=== PATIENT | female | born 1945 | race Two or more races ===

== ENCOUNTER 2019-01-17 07:18 | Inpatient (IN) ==
--- NOTE | 2019-01-10 15:41 | PAT Medication Instructions ---
Medication Instructions Date of Service January 10, 2019 Home Medications duloxetine [Cymbalta] 120 mg PO QAM fenofibrate nanocrystallized 145 mg PO PM fentanyl 1 patch TRANSDERMAL Q72H hydroxychloroquine [Plaquenil] 200 mg PO BID levothyroxine 50 mcg PO QAM lisinopril 20 mg PO QAM meloxicam 7.5 mg PO QAM oxycodone-acetaminophen 1 tab PO Q6H PRN simvastatin 40 mg PO PM temazepam 15 mg PO HS PRN Continue as directed fentanyl 1 patch TRANSDERMAL Q72H (avoid placement over surgery site) ASK your surgeon for instructions meloxicam 7.5 mg PO QAM ASK your prescriber and surgeon hydroxychloroquine [Plaquenil] 200 mg PO BID STOP taking 24 hours before surgery fenofibrate nanocrystallized 145 mg PO PM DO NOT take the morning of surgery lisinopril 20 mg PO QAM Take morning of surgery With a small sip of water, OTHERWISE NOTHING TO EAT OR DRINK AFTER MIDNIGHT: duloxetine [Cymbalta] 120 mg PO QAM levothyroxine 50 mcg PO QAM oxycodone-acetaminophen 1 tab PO Q6H PRN (okay to take up to 4 hours prior to surgery if needed) Take evening before surgery oxycodone-acetaminophen 1 tab PO Q6H PRN (if needed) simvastatin 40 mg PO PM temazepam 15 mg PO HS PRN (if needed) Other Notes If you have any questions please call us at [phone] or [phone] or [phone] or [phone]
--- NOTE | 2019-01-12 08:42 | Anesthesiology Consultation ---
Date of Service January 12, 2019 Assessment & Plan (1) Encounter for pre-operative examination: - PCP: 01/10/19: "she is medically stable for back surgery." - ASA instructions: Per cardio notes, patient normally taking ASA 81mg daily but currently on hold per surgeon/cardio aware. Chart Review Chart Review: Patient seen in Pre Admission Testing Teaching & Discussion Pre-Anesthesia Teaching/Discussion Notes: Instructed NPO after midnight before surgery,except medications with 15 cc of water. Medication instructions provided according to the PAT guidelines. History Surgery Operation Date: 01/17/19 09:05 Proposed Procedures p L2-L3, L3-L4 Decompression L2-S1 Fusion, L4-S1 Hardware Removal, Removal of Bone Growth Stimulator, Spinal Cord Monitoring - Phoenix Leach, Height/Weight Height: 5 ft 2 in Weight: 76.5 kg Allergies Allergy/AdvReac Type Severity Reaction Status Date / Time No Known Allergies Allergy Verified 01/07/19 08:04 Medications Home Medications Medication Instructions Recorded Confirmed Last Taken duloxetine [Cymbalta] 120 mg PO QAM 01/07/19 01/07/19 Unknown fenofibrate nanocrystallized 145 mg PO PM 01/07/19 01/07/19 Unknown fentanyl 1 patch TRANSDERMAL Q72H 01/07/19 01/07/19 Unknown hydroxychloroquine [Plaquenil] 200 mg PO BID 01/07/19 01/07/19 Unknown levothyroxine 50 mcg PO QAM 01/07/19 01/07/19 Unknown lisinopril 20 mg PO QAM 01/07/19 01/07/19 Unknown meloxicam 7.5 mg PO QAM 01/07/19 01/07/19 Unknown oxycodone-acetaminophen 1 tab PO Q6H PRN 01/07/19 01/07/19 Unknown simvastatin 40 mg PO PM 01/07/19 01/07/19 Unknown temazepam 15 mg PO HS PRN 01/07/19 01/07/19 Unknown aspirin 81 mg PO DAILY 01/12/19 01/12/19 Unknown Past Medical History Medical History Alopecia Asthma controlled Autoimmune disorder no definitive diagnosis- on plaquenil by rheumatology/arthritis center Chronic back pain Degenerative disc disease Diabetes mellitus hx per PCP notes; "diet controlled" with hgba1c 5.7% on 01/17/19 Fibromyalgia HTN (hypertension) History of iron deficiency anemia Hyperlipidemia Hypothyroidism Left bundle branch block chronic dating back to at least 2017 Osteoarthritis Exercise / Class Metabolic Activity II 4-5 Yardwork/Stairs/Walk up hill Past Surgical History Surgical History History of Achilles tendon repair x 2 - Lt History of arthroplasty of left shoulder History of arthroscopy of both knees History of back surgery hardware; bone growth stimulator present History of cardiac cath "years ago"= no stents History of cholecystectomy w/ appendectomy History of esophageal surgery laparoscopic heller myotomy with fundoplasty/EGD 2/2 achalasia: 04/30/17: Grade IIb, MAC 3, ETT 7.0 at [facility] History of hysterectomy with unilateral oophorectomy History of oral surgery removal of benign growth History of tonsillectomy History of tooth extraction History of tubal ligation Status post left foot surgery hardware present Status post rotator cuff repair Past Anesthesia History No Family Hx of Anesthesia Complications and Other Laparoscopic heller myotomy with fundoplasty/EGD 2/2 achalasia: 04/30/17: Grade IIb, MAC 3, ETT 7.0 at [facility]; post-op anesthesia note: "Not suggestive of future airway management problems." Pt c/o post-op airway swelling, pain, and coughing per records. Per patient, she was told this was due to a "training" provider placing the ETT causing inflammation. Patient states this resolved with steroids/monitoring. Discharged without issue. No similar issues with other surgeries/anesthesia. History of PONV No Hx of PONV and No Hx of Motion Sickness Social History Smoking Status: Never smoker Do You Dip or Chew Tobacco: No Hx Alcohol Use: No Hx Substance Use: No substance use type: does not use Review of Systems Patient denies chest pain, shortness of breath, dyspnea on exertion, reflux, cough, wheezing, palpitations. Physical Exam Vital Signs VITALS BP 122/70 P 71 TEMP 983 SP02 96%RA RESP 18 PHYSICAL Full neck and c-spine range of motion. Full TMJ range of motion. TMD 3.5 finger breaths Mallampati Score 3 Dentition: missing sides, repaired root canal on molar Lungs: clear throughout to auscultation Cardiac: regular rate and rhythm, no murmurs noted Spine: normal Carotid arteries: negative bruit Extremities: no edema Testing Laboratory Results 01/12/19 09:10 01/12/19 09:10 PT 10.4 Seconds (9.0-12.0) 01/12/19 09:10 INR 1.0 (0.9-1.1) 01/12/19 09:10 APTT 25.8 Seconds (21.0-31.0) 01/12/19 09:10 Urine Color Dark Yellow 01/12/19 09:10 Urine Appearance Clear (Clear) 01/12/19 09:10 Urine pH 5.0 (4.5-7.5) 01/12/19 09:10 Ur Specific [place] 1.022 (1.000-1.030) 01/12/19 09:10 Urine Protein Negative (Negative) 01/12/19 09:10 Urine Glucose (UA) Negative (Negative) 01/12/19 09:10 Urine Ketones Negative (Negative) 01/12/19 09:10 Urine Nitrite Negative (Negative) 01/12/19 09:10 Ur Leukocyte Esterase Trace (Negative) H 01/12/19 09:10 Urine WBC (Auto) 1-5 /hpf (0-5) 01/12/19 09:10 Urine RBC (Auto) 0-4 /hpf (0-4) 01/12/19 09:10 U Hyaline Cast (Auto) 1-5 /lpf (0-5) 01/12/19 09:10 U Epithel Cells (Auto) 20-30 /lpf (0-5) H 01/12/19 09:10 Urine Bacteria (Auto) Negative (Negative) 01/12/19 09:10 Blood Type A Positive 01/12/19 09:10 Antibody Screen NEGATIVE 01/12/19 09:10 01/12/19 09:10 Urine Culture - Final Urine,Clean Catch More than three types of organisms present, all low counts mixed probable skin shen. No further identifications or sensitivities to follow. 01/07/19 HGBA1C 5.7% (per cardio notes; unable to obtain official report) Electrocardiogram Date: 01/12/19 NSR at 70bpm. LBBB (chronic dating back to at least 2016 per chart review*) Chest X-Ray Date: 01/12/19 Findings: + NAD
--- NOTE | 2019-01-12 09:37 | XRay Report ---
XR chest Pre-admission PA/Lat CLINICAL HISTORY: Preoperative chest COMPARISON STUDY: No previous studies for comparison. FINDINGS: The cardiac and mediastinal contours are normal. There is no evidence of focal pulmonary co nsolidation. There is no evidence of failure. No pleural effusions are visualized.[ IMPRESSION: No active disease in the chest. Electronically signed by: Lamont Donald M.D. 01/12/2019 9:36 AM
[2019-01-12 10:34] LABS: Basophils # (auto) 0.03 K/uL (0-0.2); Basophils % (auto) 0.6 %; Eosinophils # (auto) 0.33 K/uL (0-0.5); Eosinophils % (auto) 7.1 %; Hematocrit (blood only) 37.8 % (37-47); Hemoglobin 12.2 g/dL (12.0-16.0); Immature Granulocytes # (auto) 0.01 K/uL (0.00-0.02); Immature Granulocytes % (auto) 0.2 %; Lymphocytes # (auto) 1.75 K/uL (1.2-3.4); Lymphocytes % (auto) 37.5 %; Mean Corpuscular Hgb Conc 32.3 g/dL (32-36); Mean Corpuscular Volume 91.3 fL (80-100); Mean Platelet Volume 11.4 fL (7.4-10.4); Monocytes # (auto) 0.54 K/uL (0.11-0.59); Monocytes % (auto) 11.6 %; Neutrophils # (auto) 2.01 K/uL (1.4-6.5); Platelet Count 339 K/uL (130-400); RDW Coefficient of Variation 13.6 % (11.5-14.5); RDW Standard Deviation 44.8 fL (36.4-46.3); Red Blood Count 4.14 M/uL (4.2-5.4); White Blood Count 4.67 K/uL (4.8-10.8)
[2019-01-12 10:35] LABS: Appearance Urine Clear (Clear); Bacteria Urine Automated Negative (Negative); Bilirubin Urine Negative (Negative); Blood Urine Negative (Negative); Color Urine Dark Yellow; Epithelial Cell Urine Auto 20-30 /lpf (0-5); Glucose Urine UA Negative (Negative); Ketones Urine Negative (Negative); Leukocyte Esterase Urine Trace (Negative); Nitrite Urine Negative (Negative); Protein Urine Negative (Negative); RBC Urine Automated 0-4 /hpf (0-4); Specific Gravity Urine 1.022 (1.000-1.030); Urobilinogen Urine Negative (Negative)
[2019-01-12 10:41] LABS: BUN Creatinine Ratio 16.9 (10-20); Calcium 9.5 mg/dl (8.5-10.1); Creatinine Clr Calc Pharmacy 59.2 ml/min; Est GFR (African American) 83.5; Est GFR (Non-African American) 72.1; Potassium 4.4 mmol/L (3.5-5.1)
[2019-01-12 10:49] LABS: Amorphous Sediment Urine Present (None Prsent); Calcium Oxalate Crystals Urine Present (None Prsent); Mucus Urine Present (None Prsent); Partial Thromboplastin Time 25.8 Seconds (21.0-31.0); Prothrombin Time 10.4 Seconds (9.0-12.0)
[~2019-01-17 07:18] MED LIST: CEFAZOLIN 1000MG 1,000 MG/7.5 ML SYR IV SCH; LR 15ML/HR IV SCH
[2019-01-17] MEDS ORDERED: fentaNYL citrate 100 MCG/2 ML VIAL ONE ×7 (08:38→12:38)
[2019-01-17] MEDS ORDERED: MIDAZOLAM HCL 1 MG/ML 2ML VIAL ONE (08:38)
--- NOTE | 2019-01-17 08:58 | History & Physical Bridge Note ---
Date of Service January 17, 2019 History & Physical Bridge Note I have examined the patient, reviewed the History & Physical and in the interval since the performance of the History & Physical I have noted the following changes of clinical significance: no changes noted
--- NOTE | 2019-01-17 08:59 | History & Physical Report ---
Date of Service January 17, 2019 Assessment & Plan (1) Spinal stenosis, lumbar region with neurogenic claudication: L2-L3 L3-L4 decompression L2-S1 fusion hardware removal L4-S1 with removal of bone growth stimulator Present on Admission?: Yes History of Present Illness Chief Complaint: Chronic back and bilateral leg pain Primary Care Provider: Madiha Jeff This is a 74-year-old female presents with chronic back and bilateral leg pain. After failing extensive course of nonoperative care she is here for surgical intervention. Allergies Allergy/AdvReac Type Severity Reaction Status Date / Time No Known Allergies Allergy Verified 01/17/19 07:56 Home Medications Home Medications Medication Instructions Recorded Confirmed Type duloxetine [Cymbalta] 120 mg PO QAM 01/07/19 01/17/19 History fenofibrate nanocrystallized 145 mg PO PM 01/07/19 01/17/19 History fentanyl 1 patch TRANSDERMAL Q72H 01/07/19 01/17/19 History hydroxychloroquine [Plaquenil] 200 mg PO BID 01/07/19 01/17/19 History levothyroxine 50 mcg PO QAM 01/07/19 01/17/19 History lisinopril 20 mg PO QAM 01/07/19 01/17/19 History meloxicam 7.5 mg PO QAM 01/07/19 01/17/19 History oxycodone-acetaminophen 1 tab PO Q6H PRN 01/07/19 01/17/19 History simvastatin 40 mg PO PM 01/07/19 01/17/19 History temazepam 15 mg PO HS PRN 01/07/19 01/17/19 History aspirin 81 mg PO DAILY 01/12/19 01/17/19 History Past Med/Surg History Social History Preferred Language: [place] Communication Ability: Effective Automatic Profile Shaper Operator Required: No Beliefs That Will Affect Care: None Current Living Situation: Significant Other Other Information That Helps Us Care for You: No Feels Safe at Home: Yes Safety Concerns: Feels Safe At This Time Smoking Status: Never smoker Do You Dip or Chew Tobacco: No ; Second Hand Exposure: Yes (previous exposure at the workplace) ; Hx Alcohol Use: No Hx Substance Use: No Physical Exam Physical Exam: Patient is alert and oriented neurologically intact. Results & Data Vital Signs (Past 12 Hours) Vital Signs Temp Pulse Resp BP Pulse Ox 01/17/19 08:03 36.9 C 88 18 165/96 H 97
[2019-01-17] MEDS ORDERED: LABETALOL HCL IV 5 MG/ML 20ML IV PRN (09:01)
[2019-01-17] MEDS ORDERED: ATROPINE SULFATE 0.1 MG/ML 10ML SYR IV PRN (09:01)
[2019-01-17] MEDS ORDERED: ONDANSETRON INJ 2 MG/ML 2 ML VIAL IV PRN ×2 (09:01→15:11)
[2019-01-17] MEDS ORDERED: BUPIVACAINE/EPINEPHRINE 0.5% MPF 1:200,000 30 ML VIAL ONE (09:05)
[2019-01-17] MEDS ORDERED: BACITRACIN INJ 50,000 UNIT VIAL ONE (09:06)
[2019-01-17] MEDS ORDERED: HYDROmorphone INJ 2 MG/ML SYR/VIAL ONE ×3 (09:53→12:30)
[2019-01-17] MEDS ORDERED: FLOSEAL HEMOSTATIC MATRIX 10ML TOP ONE (09:58)
[2019-01-17] MEDS ORDERED: PROPOFOL IV EMULSION 10 MG/ML 20 ML VIAL IV ONE (11:15)
[2019-01-17] MEDS ORDERED: ePHEDrine sulfate 50 MG/ML SYR ONE (11:15)
[2019-01-17] MEDS ORDERED: NEOSTIGMINE METHYLSULFATE 1 MG/ML 10ML VIAL ONE (11:15)
[2019-01-17] MEDS ORDERED: ONDANSETRON INJ 2 MG/ML 2 ML VIAL ONE (11:15)
[2019-01-17] MEDS ORDERED: ROCURONIUM BROMIDE 10 MG/ML 5 ML VIAL ONE (11:15)
[2019-01-17] MEDS ORDERED: GLYCOPYRROLATE 0.2 MG/ML VIAL ONE (11:15)
[2019-01-17] MEDS ORDERED: DEXAMETHASONE SOD INJ 4 MG/ML VIAL ONE (11:15)
[2019-01-17] MEDS ORDERED: PHENYLEPHRINE 100MCG/ML 5ML SYR ONE (11:15)
[2019-01-17] MEDS ORDERED: LIDOCAINE HCL 2% 2 ML VIAL/AMP(20MG/ML) INFIL ONE (11:15)
--- NOTE | 2019-01-17 12:29 | Operative Report ---
Post Operative Report Pre & Post Diagnosis Operation Date: 01/17/19 09:05 Pre-Op Diagnosis: Spinal stenosis with neurogenic claudication Post-Op Diagnosis: Same Procedure Operation Date: 01/17/19 09:05 Actual Procedures 1 removal of instrumentation L4-5 L5-S1 and the internal bone growth stimulator #2 exploration of fusion L4-5 L5-S1 per #3 lumbar decompression with bilateral medial facetectomies and foraminotomies L1-L2 3 L3-4. #4 posterior spinal fusion L2-3 L3-4. #5 placement posterior segmental instrumentation L2-S1. #6 interbody fusion L3-4 per #7 placement of peek cage 11 x 26 mm of L3-4. #8 placement of local autograft in the posterior lateral gutters per #9 placement infuse collagen sponge, master graft in the posterior lateral gutters and ostial amp and interbody space. Surgeon Phoenix Leach, Roll Plugger Machine Operator Kyung Hernandez Estimated Blood Loss 350 Findings See Below Patient is 5 foot 1 inches tall weighing 75.9 kg with a BMI in excess of 31. The patient's body habitus combined with the significant scar tissue from her previous surgery contributed to it at least a 25% increase in operative time. Specimens None Indications This is a 24-year-old female that presents with worsening back and leg pain after failing extensive course of nonoperative care is here for surgical intervention. Description of Procedure Patient was met with identified and informed consent obtained. She was then taken to the operative suite underwent intubation placed in the prone position the Terry table on top of the Jai frame. All bony prominences padded eyes inspected to ensure no external pressure placed upon the peer at this point the lumbar spine was prepped and draped in a normal sterile fashion. Sharp dissection with the assistance pericardial was performed down to and exposing the lamina and transverse processes of L2-L3 and instrumentation at L4-L5 and sacral ala bilaterally. I did identify and remove the internally placed bone growth stimulator. I then removed the instrumentation at L4-L5 and S1 levels bilaterally. I explored the fusion mass noting it to be intact. I then performed a complete laminectomy of L3 L2 and partial laminectomy of L1. Included bilateral medial facetectomies foraminotomies to address severe stenosis. Pedicle screws were then placed in L2-L3-L4 L5-S1 levels bilaterally with assistance of fluoroscopy the purposes malika placed. By way of a transforaminal approach on the right complete discectomy of L3-4 was performed in plate graded to subcortical bleeding bone and a 11 x 26 mm peek cage filled with ostium bone graft tapped into position. Rods were then locked in final position bilaterally. I felt that there was somewhat thinned during her decompression at the junction of the 3 4 level on the left and placed a small DuraGen patch and DuraSeal overlying this region prophylactically. The transverse processes of L2-L3-L4 were then burred to subcortical bleeding bone. Infuse collagen sponge mass graft local autograft was placed in the posterior lateral gutters. 15 round HUEY drain inserted. The incision was then closed with 1 Vicryl in the fascia 2-0 Vicryl subcutaneously 4-0 Monocryl Monocryl for final skin closure. Steri-Strip sterile dressings placed. Patient will continue PACU stable condition. Please note Kyung Hernandez was present at the entire procedure involved the patient positioning complex portions of the surgery and final skin closure. Lastly spinal cord monitoring was utilized throughout the procedure no changes noted. I attest to the content of the Intraoperative Record and any orders documented therein. Any exceptions are noted below.
[2019-01-17] MEDS: HYDROmorphone INJ 1 MG/ML SYRINGE IV PRN ×8 (12:56→13:35)
[2019-01-17] MEDS ORDERED: ESMOLOL HCL INJ 10 MG/ML 10ML VIAL IV ONE (13:08)
[2019-01-17] MEDS ORDERED: LARYING-O-JET KIT (LTA) ONE (13:08)
--- NOTE | 2019-01-17 13:21 | Fluoroscopy Report ---
FL lumbar spine 2-3V CLINICAL HISTORY: L2-L4 DECOMPRESSION L2-S1 FUSION COMPARISON STUDY: None. FLUOROSCOPY TIME: 17.5 seconds. FLUOROSCOPIC IMAGES: 4 FINDINGS: These images demonstrate an L3-L4 discectomy with interbody spacer placement. There is a po sterior decompression. Bilateral pedicle screws are noted at the L2, L3, L4, L5 and S1 levels. There are interconnecting rods. Marked disc space narrowing at L2-L3 is noted. There is anterolisthesis of L4 and L5. IMPRESSION: Fluoroscopic images demonstrating L3-L4 discectomy and bilateral pedicle screw fusion fr om L2 through S1. Electronically signed by: Rome Pleitez M.D. 01/17/2019 1:20 PM
[2019-01-17] MEDS: HYDROmorphone INJ 0.5 MG/0.5 ML SYR IV PRN ×4 (14:02→20:40)
--- NOTE | 2019-01-17 14:38 | Anesthesiology Progress Note ---
Date of Service January 17, 2019 Anesthesia Post Procedure Vital Signs Vital Signs: Temp Pulse Pulse Resp BP Pulse Ox 01/17/19 14:25 102 H 14 109/73 97 01/17/19 14:15 98.2 F 102 H 18 111/72 99 01/17/19 14:05 98 H 18 128/66 100 01/17/19 13:55 96 H 16 135/75 100 01/17/19 13:45 98 H 16 115/68 100 01/17/19 13:35 99 H 16 119/66 100 01/17/19 13:25 101 H 16 120/66 100 01/17/19 13:15 100 H 18 139/71 100 01/17/19 13:05 98 H 18 129/69 100 01/17/19 12:55 98 H 18 117/84 100 01/17/19 12:47 97.7 F 93 H 20 131/77 100 01/17/19 08:03 98.4 F 88 18 165/96 H 97 Pain Intensity Medial Back: Pain Intensity: 7 Transfer of Care Handoff Completed per policy Notes Mental Status: alert / awake / arousable and participated in evaluation Patient Amnestic to Procedure: Yes Nausea / Vomiting: adequately controlled Pain: adequately controlled Airway Patency, RR, SpO2: stable & adequate BP & HR: stable & adequate Hydration State: stable & adequate Anesthetic Complications: no major complications apparent and Pt Satisfied with anesthetic care
[2019-01-17] MEDS ORDERED: DO NOT ADMINISTER FLU VACCINE PRN (15:11)
[2019-01-17] MEDS ORDERED: FAMOTIDINE 20 MG TAB PO PRN (15:11)
[2019-01-17] MEDS ORDERED: LORazepam 0.5 MG/1 ML VIAL IV PRN (15:11)
[2019-01-17] MEDS ORDERED: ONDANSETRON 4 MG TAB PO PRN (15:11)
[2019-01-17] MEDS ORDERED: ACETAMINOPHEN 500 MG TAB PO PRN (15:11)
[2019-01-17] MEDS ORDERED: ACETAMINOPHEN 1,000 MG/100 ML VIAL IV PRN (15:11)
[2019-01-17] MEDS ORDERED: METOCLOPRAMIDE HCL INJ 5 MG/ML 2 ML VIAL IV PRN (15:11)
[2019-01-17] MEDS ORDERED: ALUMINUM/MAGNESIUM SUSP 30 ML UDC PO PRN (15:11)
[2019-01-17] MEDS ORDERED: PROMETHAZINE HCL 12.5 MG in SODIUM CHLORIDE 0.9% 50 ML IV PRN (15:11)
[2019-01-17] MEDS ORDERED: MAGNESIUM HYDROXIDE SUSP 30 ML UDC PO PRN (15:11)
[2019-01-17] MEDS ORDERED: BISACODYL 10 MG SUPP PR PRN (15:11)
[2019-01-17] MEDS ORDERED: LORazepam 0.5 MG TAB PO PRN (15:11)
[2019-01-17] MEDS ORDERED: DO NOT ADMINISTER PNEUMOCOCCAL VACCINE PRN (15:11)
[2019-01-17] MEDS ORDERED: SOD PHOSPHATE/SOD BIPHOSPHATE ENEMA 132 ML BTL PR PRN (15:11)
[2019-01-17] MEDS: LACTATED RINGER'S 1,000 ML IV SCH ×2 (15:40→19:21)
[2019-01-17] MEDS: CHECK FENTANYL PATCH PLACEMENT SCH ×2 (15:40→23:45)
[2019-01-17] MEDS: CEFAZOLIN 2000MG 2,000 MG/15 ML SYR IV SCH ×2 (15:58→22:47)
--- NOTE | 2019-01-17 16:34 | Hospitalist Consultation ---
Date of Consultation January 17, 2019 Assessment & Plan (1) S/P spinal surgery: This is a 74yo F with a PMH of HTN, hypothyroidism, arthritis, HLD, depression and other medical problems listed below who is POD #0 s/p removal of instrumentation L4-5 L5-S1 and the internal bone growth stimulator, lumbar decompression with bilateral medial facetectomies and foraminotomies L1-L2 3 L3- 4 and posterior spinal fusion L2-3 L3-4 with placement posterior segmental instrumentation L2-S1. -POD#0 s/p removal of instrumentation and internal bone growth stimulator , decomp & fusion L2-L4 -Pt is doing well post-operatively -Per ortho for pain control, wound care, anticoagulation and activities -When evaluated, was on bed rest in supine position due to dural thinning and DuraGen placement -Advancement of activities and diet per Dr. Leach -Monitor H&H (EBL: 350 ml, HUEY output: 230ml to date) -Continue incentive spirometry, PT/OT when appropriate (2) HTN (hypertension): Normotensive -Continue home dose lisinopril (3) Depression: Continue Cymbalta (4) Asthma: Stable. Does not require home inhalers (5) Arthritis: Follows with rheumatology -H/o concern for SLE and RA but no positive rheum markers -Continue home Plaquenil (6) HLD (hyperlipidemia): Continue statin (7) Hypothyroidism: Continue levothyroxine (8) Insomnia: Temazepam HS PRN (instructions to hold if lethargic or drowsy in setting of narcotics) PCP: Tomer Allen) Dispo: Per primary service Patient seen in collaboration with Dr. Queen. Please see addendum. Supervising Physician Co-Signing Physician Notes Patient is a 74-year-old female with history of hypertension, depression, asthma and other problems was seen and examined postop after having spinal surgery by Dr. Leach. Patient complains of mild pain at surgical site. Denies any shortness of breath, dizziness, nausea, abdominal pain, chest pain. On exam patient is moderately built and nourished, no apparent distress, normocephalic atraumatic, lungs are clear to auscultation, S1-S2, no murmur, no pedal edema, back--surgical site in dressing,+ drain, grossly no focal neurological deficits. Patient is evaluated for postop medical management. Monitor for postop anemia. Pain control, DVT prophylaxis, activity as per primary team. Mild sinus tachycardia noted--likely secondary to pain. Agree with management as above. I personally reviewed the record. Patient is interviewed and examined at bedside. Patient's care is coordinated with Margarette Sloan PA-C. Please refer to the documentation above for details of patient's presentation and for discussion of other issues. History of Present Illness Reason for Consultation: post op medical management Attending Physician: Phoenix Leach DO History of Present Illness This is a 74yo F with a PMH of HTN, hypothyroidism, h/o LBBB, arthritis, HLD, depression and other medical problems listed below who is POD #0 s/p removal of instrumentation L4-5 L5-S1 and the internal bone growth stimulator, lumbar decompression with bilateral medial facetectomies and foraminotomies L1-L2 3 L3- 4 and posterior spinal fusion L2-3 L3-4 with placement posterior segmental instrumentation L2-S1. Patient is feeling well post-operatively. Denies surgical site pain or distal numbness or paresthesias of lower extremities. Denies any post op fever, chills, lightheadedness, visual changes, chest pain, palpitations, SOB, nausea, vomiting, abdominal pain or dysuria. Follows with Dr. Jeff in [place] for primary care. Is on Plaquenil 200mg BID for "borderline" lupus and RA by float builder. Also has history of esophageal heller myotomy procedure at [facility] in 2017 for tortuous esophagus. Allergies Allergy/AdvReac Type Severity Reaction Status Date / Time No Known Allergies Allergy Verified 01/17/19 07:56 Home Medications Home Medications Medication Instructions Recorded Confirmed Type duloxetine [Cymbalta] 120 mg PO QAM 01/07/19 01/17/19 History fenofibrate nanocrystallized 145 mg PO PM 01/07/19 01/17/19 History fentanyl 1 patch TRANSDERMAL Q72H 01/07/19 01/17/19 History hydroxychloroquine [Plaquenil] 200 mg PO BID 01/07/19 01/17/19 History levothyroxine 50 mcg PO QAM 01/07/19 01/17/19 History lisinopril 20 mg PO QAM 01/07/19 01/17/19 History meloxicam 7.5 mg PO QAM 01/07/19 01/17/19 History oxycodone-acetaminophen 1 tab PO Q6H PRN 01/07/19 01/17/19 History simvastatin 40 mg PO PM 01/07/19 01/17/19 History temazepam 15 mg PO HS PRN 01/07/19 01/17/19 History aspirin 81 mg PO DAILY 01/12/19 01/17/19 History Patient History Medical History Alopecia Asthma controlled Autoimmune disorder no definitive diagnosis- on plaquenil by rheumatology/arthritis center Chronic back pain Degenerative disc disease Fibromyalgia HTN (hypertension) Hyperlipidemia Hypothyroidism Left bundle branch block chronic dating back to at least 2017 Osteoarthritis Diabetes mellitus hx per PCP notes; "diet controlled" with hgba1c 5.7% on 01/17/19 History of iron deficiency anemia Surgical History History of Achilles tendon repair x 2 - Lt History of arthroplasty of left shoulder History of arthroscopy of both knees History of back surgery hardware; bone growth stimulator present History of cardiac cath "years ago"= no stents History of cholecystectomy w/ appendectomy History of esophageal surgery laparoscopic heller myotomy with fundoplasty/EGD 2/ achalasia: 04/30/17: Grade IIb, MAC 3, ETT 7.0 at [facility] History of hysterectomy with unilateral oophorectomy History of oral surgery removal of benign growth History of tonsillectomy History of tooth extraction History of tubal ligation Status post left foot surgery hardware present Status post rotator cuff repair Family History Other Diabetes Heart disease Hypertension Social History Preferred Language: [place] Communication Ability: Effective Video Game Creator Required: No Beliefs That Will Affect Care: None Current Living Situation: Significant Other Other Information That Helps Us Care for You: No Feels Safe at Home: Yes Safety Concerns: Feels Safe At This Time Smoking Status: Never smoker Do You Dip or Chew Tobacco: No ; Second Hand Exposure: Yes (previous exposure at the workplace) ; Hx Alcohol Use: No Hx Substance Use: No Review of Systems Review of Systems: At least ten systems reviewed and negative except as noted in the HPI. Physical Exam Physical Exam: General Appearance: WD/WN, no apparent distress, lying flat in supine position Head: normocephalic, atraumatic Eyes: normal inspection, PERRL, EOMI ENT: hearing grossly normal, pharynx normal (moist mucous membranes) Neck: supple, no JVD, no adenopathy Respiratory/Chest: lungs clear to auscultation. No wheezes, rales or rhonci. No respiratory distress or accessory muscle use Cardiovascular: regular rate, rhythm, no murmur, normal peripheral pulses, no BLE edema Abdomen/GI: normal bowel sounds, soft, non-tender to palpation Extremities/Musculoskelatal: did not assess lumbosacral dressing due to DuraGen placement. HUEY drain visualized. No calf tenderness, normal capillary refill, no pedal edema Neurologic/Psych: alert, normal mood/affect, oriented x 3, dorsiflexion and plantar flexion intact bilaterally, no gross motor/sensory abnormalities Skin: normal color, warm/dry Results & Data Vital Signs (Past 12 Hours) Vital Signs Temp Pulse Pulse Pulse Resp BP Pulse Ox 01/17/19 15:48 96 H 18 125/65 98 01/17/19 15:25 102 H 111/64 01/17/19 15:19 36.8 C 104 H 18 93/58 L 98 01/17/19 14:45 37.0 C 104 H 16 102/66 99 01/17/19 14:25 102 H 14 109/73 97 01/17/19 14:15 36.8 C 102 H 18 111/72 99 01/17/19 14:05 98 H 18 128/66 100 01/17/19 13:55 96 H 16 135/75 100 01/17/19 13:45 98 H 16 115/68 100 01/17/19 13:35 99 H 16 119/66 100 01/17/19 13:25 101 H 16 120/66 100 01/17/19 13:15 100 H 18 139/71 100 01/17/19 13:05 98 H 18 129/69 100 01/17/19 12:55 98 H 18 117/84 100 01/17/19 12:47 36.5 C 93 H 20 131/77 100 01/17/19 08:03 36.9 C 88 18 165/96 H 97 Laboratory Results Short CBC 01/12/19 01/17/19 Range/Units 09:10 08:18 Blood Type A Positive A Positive Antibody Screen NEGATIVE NEGATIVE Crossmatch See Detail
[2019-01-17] MEDS: OXYCODONE HCL IR 5 MG TAB (IMMEDIATE RELEASE) PO PRN ×2 (16:57→22:02)
[2019-01-17] MEDS: fentaNYL 50 MCG/HR TDSY TD SCH (19:16)
[2019-01-17] MEDS: DOCUSATE SODIUM/SENNA 50/8.6MG TAB PO SCH (20:51)
[2019-01-17] MEDS: FENOFIBRATE NANOCRYSTALLIZED 145 MG TABLET PO SCH (20:52)
[2019-01-17] MEDS: SIMVASTATIN 40 MG TAB PO SCH (20:52)
[2019-01-18] MEDS: HYDROmorphone INJ 0.5 MG/0.5 ML SYR IV PRN (00:46)
[2019-01-18] MEDS: TEMAZEPAM 15 MG CAPSULE PO PRN (01:40)
[2019-01-18] MEDS: OXYCODONE HCL IR 5 MG TAB (IMMEDIATE RELEASE) PO PRN ×3 (03:10→20:12)
[2019-01-18] MEDS: LEVOTHYROXINE SODIUM 50 MCG TABLET PO SCH (05:24)
[2019-01-18] MEDS: POLYETHYLENE (MIRALAX) 17 GM PACK PO SCH ×4 (05:24→23:21)
[2019-01-18] MEDS: LACTATED RINGER'S 1,000 ML IV SCH (05:26)
[2019-01-18 05:54] LABS: Basophils # (auto) 0.01 K/uL (0-0.2); Basophils % (auto) 0.1 %; Eosinophils # (auto) 0.01 K/uL (0-0.5); Eosinophils % (auto) 0.1 %; Hematocrit (blood only) 25.8 % (37-47); Hemoglobin 8.6 g/dL (12.0-16.0); Immature Granulocytes # (auto) 0.02 K/uL (0.00-0.02); Immature Granulocytes % (auto) 0.2 %; Lymphocytes # (auto) 1.73 K/uL (1.2-3.4); Lymphocytes % (auto) 17.9 %; Mean Corpuscular Hgb Conc 33.3 g/dL (32-36); Mean Corpuscular Volume 90.5 fL (80-100); Mean Platelet Volume 10.8 fL (7.4-10.4); Monocytes # (auto) 0.94 K/uL (0.11-0.59); Monocytes % (auto) 9.7 %; Neutrophils # (auto) 6.97 K/uL (1.4-6.5); Platelet Count 272 K/uL (130-400); RDW Coefficient of Variation 13.5 % (11.5-14.5); RDW Standard Deviation 44.4 fL (36.4-46.3); Red Blood Count 2.85 M/uL (4.2-5.4); White Blood Count 9.68 K/uL (4.8-10.8)
[2019-01-18 06:24] LABS: BUN Creatinine Ratio 15.3 (10-20); Calcium 8.4 mg/dl (8.5-10.1); Creatinine Clr Calc Pharmacy 61.3 ml/min; Est GFR (African American) 77.1; Est GFR (Non-African American) 66.6; Potassium 3.9 mmol/L (3.5-5.1)
[2019-01-18] MEDS: CHECK FENTANYL PATCH PLACEMENT SCH ×3 (07:39→23:21)
--- NOTE | 2019-01-18 07:44 | Anesthesiology Progress Note ---
Date of Service January 18, 2019 Anesthesia Post Procedure Vital Signs Vital Signs: Temp Pulse Pulse Pulse Resp BP Pulse Ox 01/18/19 07:02 37.5 C 96 H 18 95/60 L 96 01/18/19 03:20 37.6 C H 94 H 18 91/56 L 97 01/17/19 23:00 37.6 C H 96 H 16 92/52 L 99 01/17/19 20:36 18 110/63 99 01/17/19 19:11 37.2 C 101 H 18 118/65 98 01/17/19 17:45 37.1 C 96 H 18 125/61 99 01/17/19 16:51 36.8 C 101 H 18 108/64 99 01/17/19 15:48 96 H 18 125/65 98 01/17/19 15:25 102 H 111/64 01/17/19 15:19 36.8 C 104 H 18 93/58 L 98 01/17/19 14:45 37.0 C 104 H 16 102/66 99 01/17/19 14:25 102 H 14 109/73 97 01/17/19 14:15 36.8 C 102 H 18 111/72 99 01/17/19 14:05 98 H 18 128/66 100 01/17/19 13:55 96 H 16 135/75 100 01/17/19 13:45 98 H 16 115/68 100 01/17/19 13:35 99 H 16 119/66 100 01/17/19 13:25 101 H 16 120/66 100 01/17/19 13:15 100 H 18 139/71 100 01/17/19 13:05 98 H 18 129/69 100 01/17/19 12:55 98 H 18 117/84 100 01/17/19 12:47 36.5 C 93 H 20 131/77 100 01/17/19 08:03 36.9 C 88 18 165/96 H 97 Pain Intensity Medial Back: Pain Intensity: 5 Notes Mental Status: alert / awake / arousable Patient Amnestic to Procedure: Yes Nausea / Vomiting: adequately controlled Pain: adequately controlled Airway Patency, RR, SpO2: stable & adequate BP & HR: stable & adequate Hydration State: stable & adequate Anesthetic Complications: no major complications apparent and Pt Satisfied with anesthetic care
[2019-01-18] MEDS: DULOXETINE HCL 60 MG CAP PO SCH (08:36)
[2019-01-18] MEDS: ASPIRIN 81 MG ECTAB PO SCH (08:37)
--- NOTE | 2019-01-18 08:38 | Hospitalist Progress Note ---
Date of Service January 18, 2019 Assessment & Plan (1) S/P spinal surgery: This is a 74yo F with a PMH of HTN, hypothyroidism, arthritis, HLD, depression and other medical problems listed below who is s/p removal of instrumentation L4-5 L5-S1 and the internal bone growth stimulator, lumbar de compression with bilateral medial facetectomies and foraminotomies L1-L2 3 L3-4 and posterior spinal fusion L2-3 L3-4 with placement posterior segmental instrumentation L2-S1. -POD# 1 s/p removal of instrumentation and internal bone growth stimulator , decomp & fusion L2-L4 -Per ortho for pain control, wound care, anticoagulation and activities -Monitor H&H (EBL: 350 ml, HUEY output: 230ml to date) --> Down to 8.6 -Continue incentive spirometry, PT/OT when appropriate (2) HTN (hypertension): BP borderline low -Hold lisinopril -Monitor (3) Depression: -Continue Cymbalta (4) Asthma: -Stable. Does not require home inhalers (5) Arthritis: Follows with rheumatology -H/o concern for SLE and RA but no positive rheum markers -Continue home Plaquenil (6) HLD (hyperlipidemia): -Continue statin (7) Hypothyroidism: -Continue levothyroxine (8) Insomnia: -Temazepam HS PRN (instructions to hold if lethargic or drowsy in setting of narcotics) PCP: Tomer Allen) Dispo: Per primary service Subjective Patient's back pain is better controlled this morning. She states her left leg symptoms are markedly improved. No chest pain, shortness of breath, fever, chills. Next para Physical Exam Physical Exam: GENERAL- AAOX3, No acute distress LUNGS- Air entry bilaterally decreased. No rales, rhonchi, crackles, wheezes heard. HEART- Regular rate and rhythm. No murmurs ABDOMEN- Soft, non tender, non distended, Bowel sounds heard. EXTREMITIES- Good peripheral pulses, no edema BACK - S/P Lumbar surgery with drain Results & Data Vital Signs (Past 12 Hours) Vital Signs Temp Pulse Resp BP Pulse Ox 01/18/19 07:02 37.5 C 96 H 18 95/60 L 96 01/18/19 03:20 37.6 C H 94 H 18 91/56 L 97 08/05/19 23:00 37.6 C H 96 H 16 92/52 L 99 01/17/19 20:36 18 110/63 99
[2019-01-18] MEDS ORDERED: LISINOPRIL 20 MG TAB PO SCH (09:00)
--- NOTE | 2019-01-18 09:30 | Orthopedic Progress Note ---
Date of Service January 18, 2019 Assessment & Plan (1) S/P spinal surgery: This time would like to maintain strict bedrest today. She may elevate the head of the bed for eating. I will reassess her in the a.m. at that time if all looks appropriate we will initiate physical therapy. Patient understands and agrees with this plan. Present on Admission?: Yes Subjective Patient's back pain is better controlled this morning. She states her left leg symptoms are markedly improved. She denies any headache or nausea this morning. Physical Exam Physical Exam: On exam she is sitting up at about 30 degrees in bed. She tolerated her breakfast. She has good strength testing lower extremities. Results & Data Vital Signs (Past 12 Hours) Vital Signs Temp Pulse Resp BP Pulse Ox 01/18/19 07:02 37.5 C 96 H 18 95/60 L 96 01/18/19 03:20 37.6 C H 94 H 18 91/56 L 97 01/17/19 23:00 37.6 C H 96 H 16 92/52 L 99
[2019-01-18] MEDS: KETOROLAC 30 MG/ML VIAL IV SCH ×2 (17:35→22:33)
[2019-01-18] MEDS: FENOFIBRATE NANOCRYSTALLIZED 145 MG TABLET PO SCH (20:06)
[2019-01-18] MEDS: SIMVASTATIN 40 MG TAB PO SCH (20:06)
[2019-01-18] MEDS: DOCUSATE SODIUM/SENNA 50/8.6MG TAB PO SCH (20:06)
[2019-01-19] MEDS: POLYETHYLENE (MIRALAX) 17 GM PACK PO SCH ×4 (05:17→23:18)
[2019-01-19] MEDS: LEVOTHYROXINE SODIUM 50 MCG TABLET PO SCH (05:17)
[2019-01-19] MEDS: KETOROLAC 30 MG/ML VIAL IV SCH ×3 (05:17→17:13)
[2019-01-19 06:30] LABS: Hematocrit (blood only) 25.3 % (37-47); Hemoglobin 8.2 g/dL (12.0-16.0); Mean Corpuscular Hgb Conc 32.4 g/dL (32-36); Mean Corpuscular Volume 92.7 fL (80-100); Mean Platelet Volume 10.6 fL (7.4-10.4); Platelet Count 241 K/uL (130-400); RDW Coefficient of Variation 13.4 % (11.5-14.5); RDW Standard Deviation 45.8 fL (36.4-46.3); Red Blood Count 2.73 M/uL (4.2-5.4); White Blood Count 9.03 K/uL (4.8-10.8)
[2019-01-19 06:56] LABS: BUN Creatinine Ratio 12.8 (10-20); Calcium 8.4 mg/dl (8.5-10.1); Creatinine Clr Calc Pharmacy 73.3 ml/min; Est GFR (African American) 95.6; Est GFR (Non-African American) 82.5; Potassium 3.8 mmol/L (3.5-5.1)
[2019-01-19] MEDS: CHECK FENTANYL PATCH PLACEMENT SCH ×3 (07:39→23:22)
[2019-01-19] MEDS: OXYCODONE HCL IR 5 MG TAB (IMMEDIATE RELEASE) PO PRN ×2 (07:42→20:22)
[2019-01-19] MEDS: ASPIRIN 81 MG ECTAB PO SCH (09:20)
[2019-01-19] MEDS: DULOXETINE HCL 60 MG CAP PO SCH (09:20)
--- NOTE | 2019-01-19 12:03 | Orthopedic Progress Note ---
Date of Service January 19, 2019 Assessment & Plan (1) S/P spinal surgery: At this time we will remove her HUEY drain and maintain bedrest another 24 hours. I reassess her in a.m. determine if we can begin bed to chair. Present on Admission?: Yes Subjective Patient's back pain is controlled. She is describing some frontal headaches. Leg symptoms are markedly improved. Physical Exam Physical Exam: On exam she is good strength testing she does appear overall comfortable. Results & Data Vital Signs (Past 12 Hours) Vital Signs Temp Pulse Resp BP Pulse Ox 01/19/19 07:53 36.7 C 68 18 100/56 L 99
--- NOTE | 2019-01-19 13:09 | Hospitalist Progress Note ---
Date of Service January 19, 2019 Assessment & Plan (1) S/P spinal surgery: This is a 74yo F with a PMH of HTN, hypothyroidism, arthritis, HLD, depression and other medical problems listed below who is s/p removal of instrumentation L4-5 L5-S1 and the internal bone growth stimulator, lumbar decompression with bilateral medial facetectomies and foraminotomies L1-L2 3 L3-4 and posterior spinal fusion L2-3 L3-4 with placement posterior segmental instrumentation L2- S1. -POD# 2 s/p removal of instrumentation and internal bone growth stimulator , decomp & fusion L2-L4 -Bed rest to be continued today per ortho -Per ortho for pain control, wound care, anticoagulation and activities -Monitor H & H (EBL: 350 ml, HUEY output: 230ml to date) --> Down to 8.2 -Continue incentive spirometry, PT/OT when appropriate (2) HTN (hypertension): BP borderline low -Hold lisinopril -Monitor (3) Depression: -Continue Cymbalta (4) Asthma: -Stable. Does not require home inhalers (5) Arthritis: Follows with rheumatology -H/o concern for SLE and RA but no positive rheum markers -Continue home Plaquenil (6) HLD (hyperlipidemia): -Continue statin (7) Hypothyroidism: -Continue levothyroxine (8) Insomnia: -Temazepam HS PRN (instructions to hold if lethargic or drowsy in setting of narcotics) PCP: Tomer Allen) Dispo: Per primary service Subjective Patient's back pain is controlled. Leg symptoms are markedly improved. No fever, chills, nausea, vomiting Frustrated about the bedrest Physical Exam Physical Exam: GENERAL- AAOX3, No acute distress LUNGS- Air entry bilaterally decreased. No rales, rhonchi, crackles, wheezes heard. HEART- Regular rate and rhythm. No murmurs ABDOMEN- Soft, non tender, non distended, Bowel sounds heard. EXTREMITIES- Good peripheral pulses, no edema BACK - S/P Lumbar surgery with drain Results & Data Vital Signs (Past 12 Hours) Vital Signs Temp Pulse Resp BP Pulse Ox 01/19/19 07:53 36.7 C 68 18 100/56 L 99
[2019-01-19] MEDS: DOCUSATE SODIUM/SENNA 50/8.6MG TAB PO SCH (20:38)
[2019-01-19] MEDS: SIMVASTATIN 40 MG TAB PO SCH (20:39)
[2019-01-19] MEDS: FENOFIBRATE NANOCRYSTALLIZED 145 MG TABLET PO SCH (20:39)
[2019-01-19] MEDS: KETOROLAC TROMETHAMINE 15 MG/ML VIAL IV SCH (22:14)
[2019-01-20] MEDS: OXYCODONE HCL IR 5 MG TAB (IMMEDIATE RELEASE) PO PRN ×4 (02:08→20:15)
[2019-01-20] MEDS: HYDROmorphone INJ 0.5 MG/0.5 ML SYR IV PRN (03:14)
[2019-01-20] MEDS: POLYETHYLENE (MIRALAX) 17 GM PACK PO SCH ×3 (05:43→17:31)
[2019-01-20] MEDS: KETOROLAC TROMETHAMINE 15 MG/ML VIAL IV SCH ×4 (05:43→22:22)
[2019-01-20] MEDS: LEVOTHYROXINE SODIUM 50 MCG TABLET PO SCH (05:43)
--- NOTE | 2019-01-20 08:16 | Orthopedic Progress Note ---
Date of Service January 20, 2019 Assessment & Plan (1) S/P spinal surgery: This time will begin bed to chair transfers she may begin using the bathroom once the Eddy is DC'd. Pending her tolerance of today's activity and may introduce physical therapy tomorrow Present on Admission?: Yes Subjective Patient's back pain is controlled leg symptoms markedly improved. She denies any headaches nausea or vomiting. She is able to sit up in bed to eat without difficulty. Physical Exam Physical Exam: On exam dressing is in place. She is good strength testing. Results & Data Vital Signs (Past 12 Hours) Vital Signs Temp Pulse Resp BP Pulse Ox 01/20/19 07:08 36.9 C 84 16 99/62 L 95 01/19/19 23:21 37.4 C 82 16 129/68 98
[2019-01-20] MEDS: CHECK FENTANYL PATCH PLACEMENT SCH ×2 (08:30→15:59)
[2019-01-20] MEDS: DULOXETINE HCL 60 MG CAP PO SCH (08:31)
[2019-01-20] MEDS: ASPIRIN 81 MG ECTAB PO SCH (08:31)
--- NOTE | 2019-01-20 12:37 | Hospitalist Progress Note ---
Date of Service January 20, 2019 Assessment & Plan (1) S/P spinal surgery: This is a 74yo F with a PMH of HTN, hypothyroidism, arthritis, HLD, depression and other medical problems listed below who is s/p removal of instrumentation L4-5 L5-S1 and the internal bone growth stimulator, lumbar decompression with bilateral medial facetectomies and foraminotomies L1-L2 3 L3-4 and posterior spinal fusion L2-3 L3-4 with placement posterior segmental instrumentation L2- S1. -POD# 3 s/p removal of instrumentation and internal bone growth stimulator , decomp & fusion L2-L4 -Bed rest to be continued today per ortho -Per ortho for pain control, wound care, anticoagulation and activities -Started on IV Dexamethasone q [address] Leach -Monitor H & H (EBL: 350 ml, HUEY output: 230ml to date) --> Down to 8.2 -Continue incentive spirometry, PT/OT when appropriate (2) HTN (hypertension): BP borderline low -Hold lisinopril -Monitor (3) Depression: -Continue Cymbalta (4) Asthma: -Stable. Does not require home inhalers (5) Arthritis: Follows with rheumatology -H/o concern for SLE and RA but no positive rheum markers -Continue home Plaquenil (6) HLD (hyperlipidemia): -Continue statin (7) Hypothyroidism: -Continue levothyroxine (8) Insomnia: -Temazepam HS PRN (instructions to hold if lethargic or drowsy in setting of narcotics) PCP: Tomer Aleln) Dispo: Per primary service Not yet participating with physical therapy, likely discharge tomorrow a.m. Subjective Patient's back pain is controlled. Leg symptoms markedly improved. She denies any headaches nausea or vomiting. Tolerate OOB to chair Physical Exam Physical Exam: GENERAL- AAOX3, No acute distress LUNGS- Air entry bilaterally decreased. No rales, rhonchi, crackles, wheezes heard. HEART- Regular rate and rhythm. No murmurs ABDOMEN- Soft, non tender, non distended, Bowel sounds heard. EXTREMITIES- Good peripheral pulses, no edema BACK - S/P Lumbar surgery with drain Results & Data Vital Signs (Past 12 Hours) Vital Signs Temp Pulse Resp BP Pulse Ox 01/20/19 07:08 36.9 C 84 16 99/62 L 95
[2019-01-20] MEDS: DEXAMETHASONE SOD PHOSPHATE 6 MG in SYRINGE 0 ML IV SCH ×2 (13:25→21:27)
[2019-01-20] MEDS: INSULIN ASPART 100 UNITS/ML 3 ML PEN SC SCH ×2 (18:32→21:26)
[2019-01-20] MEDS: DOCUSATE SODIUM/SENNA 50/8.6MG TAB PO SCH (19:59)
[2019-01-20] MEDS: SIMVASTATIN 40 MG TAB PO SCH (20:00)
[2019-01-20] MEDS: FENOFIBRATE NANOCRYSTALLIZED 145 MG TABLET PO SCH (20:00)
[2019-01-20] MEDS: fentaNYL 50 MCG/HR TDSY TD SCH (20:05)
[2019-01-20] MEDS: TEMAZEPAM 15 MG CAPSULE PO PRN (22:31)
[2019-01-21] MEDS: CHECK FENTANYL PATCH PLACEMENT SCH ×4 (00:40→23:32)
[2019-01-21] MEDS: POLYETHYLENE (MIRALAX) 17 GM PACK PO SCH ×4 (00:40→18:24)
[2019-01-21] MEDS: KETOROLAC TROMETHAMINE 15 MG/ML VIAL IV SCH ×4 (05:49→22:22)
[2019-01-21] MEDS: LEVOTHYROXINE SODIUM 50 MCG TABLET PO SCH (05:49)
[2019-01-21] MEDS: DEXAMETHASONE SOD PHOSPHATE 6 MG in SYRINGE 0 ML IV SCH ×3 (05:49→21:12)
[2019-01-21 06:25] LABS: Hemoglobin 8.7 g/dL (12.0-16.0); Mean Corpuscular Hgb Conc 33.5 g/dL (32-36); Mean Corpuscular Volume 89.7 fL (80-100); Mean Platelet Volume 10.7 fL (7.4-10.4); Platelet Count 344 K/uL (130-400); RDW Coefficient of Variation 12.9 % (11.5-14.5); RDW Standard Deviation 41.5 fL (36.4-46.3); White Blood Count 7.65 K/uL (4.8-10.8)
[2019-01-21 06:54] LABS: BUN Creatinine Ratio 18.9 (10-20); Creatinine Clr Calc Pharmacy 64.3 ml/min; Est GFR (African American) 81.7; Est GFR (Non-African American) 70.5; Potassium 4.2 mmol/L (3.5-5.1)
[2019-01-21] MEDS: ASPIRIN 81 MG ECTAB PO SCH (08:28)
[2019-01-21] MEDS: DULOXETINE HCL 60 MG CAP PO SCH (08:28)
[2019-01-21] MEDS: INSULIN ASPART 100 UNITS/ML 3 ML PEN SC SCH ×4 (08:31→21:06)
--- NOTE | 2019-01-21 09:19 | Orthopedic Progress Note ---
Date of Service January 21, 2019 Assessment & Plan (1) S/P spinal surgery: At this time will initiate formal physical therapy today. Pending her progress over the weekend she hopefully discharge home Thursday. Present on Admission?: Yes Subjective Patient's back pain is controlled leg pain markedly improved she denies any nausea or headaches this morning. She is been able to ambulate about the room and sit up without difficulty. Physical Exam Physical Exam: On exam she appears very comfortable has good strength testing. Dressing is clean dry and intact. Results & Data Vital Signs (Past 12 Hours) Vital Signs Temp Pulse Pulse Resp BP BP Pulse Ox 01/21/19 07:56 36.8 C 82 15 94/57 L 92 01/20/19 23:18 37.1 C 90 14 122/70 92
--- NOTE | 2019-01-21 13:32 | Hospitalist Progress Note ---
Date of Service January 21, 2019 Assessment & Plan (1) S/P spinal surgery: This is a 74yo F with a PMH of HTN, hypothyroidism, arthritis, HLD, depression and other medical problems listed below who is s/p removal of instrumentation L4-5 L5-S1 and the internal bone growth stimulator, lumbar decompression with bilateral medial facetectomies and foraminotomies L1-L2 3 L3-4 and posterior spinal fusion L2-3 L3-4 with placement posterior segmental instrumentation L2- S1. -POD# 3 -Bed rest to be continued today per ortho -Per ortho for pain control, wound care, anticoagulation and activities -Started on IV Dexamethasone q [address] Leach on 01/20/19 -Monitor H & H (EBL: 350 ml, HUEY output: 230ml to date) --> Stable -Continue incentive spirometry, PT/OT when appropriate (2) HTN (hypertension): BP borderline low -Hold lisinopril -Monitor (3) Depression: -Continue Cymbalta (4) Asthma: -Stable. Does not require home inhalers. (5) Arthritis: Follows with rheumatology -H/o concern for SLE and RA but no positive rheum markers -Continue home Plaquenil (6) HLD (hyperlipidemia): -Continue statin (7) Hypothyroidism: -Continue levothyroxine (8) Insomnia: -Temazepam HS PRN (instructions to hold if lethargic or drowsy in setting of narcotics) PCP: Tomer Allen) Dispo: Per primary service Likely discharge on thursday per ortho Subjective Patient is feeling better. Out of bed to chair. Pain is tolerable on meds. Started with physical therapy today. No chest pain, shortness of breath, nausea, vomiting. Physical Exam Physical Exam: GENERAL- AAOX3, No acute distress LUNGS- Air entry bilaterally decreased. No rales, rhonchi, crackles, wheezes heard. HEART- Regular rate and rhythm. No murmurs ABDOMEN- Soft, non tender, non distended, Bowel sounds heard. EXTREMITIES- Good peripheral pulses, no edema BACK - S/P Lumbar surgery with drain Results & Data Vital Signs (Past 12 Hours) Vital Signs Temp Pulse Resp BP Pulse Ox 01/21/19 07:56 36.8 C 82 15 94/57 L 92
[2019-01-21] MEDS ORDERED: INSULIN ASPART 100 UNITS/ML 3 ML PEN SC ONE (14:30)
[2019-01-21] MEDS ORDERED: PHARMACY GLYCEMIC MGMT CONSULT PRN (14:50)
--- NOTE | 2019-01-21 15:46 | Pharmacy Report ---
Glycemic Control Consultation - Date of Service January 21, 2019 - Scope Scope: Glycemic Pharmacist consulted by Dr Aguiar on 01/21/19 for glycemic control and to write orders per [facility] inpatient glycemic control protocol - Objective Weight: 97.522 kg Accuchecks BSG (last 24hrs): 01/20/19 01/20/19 01/21/19 17:15 20:44 06:08 Glucose 155 H POC Glucose 172 H 155 H 01/21/19 01/21/19 08:13 12:14 Glucose POC Glucose 171 H 220 H Laboratory Data (last 24hrs): 01/21/19 06:08 Potassium 4.2 Carbon Dioxide 30 Anion Gap 6.0 Creatinine 0.82 Est Cr Clr Drug Dosing 64.3 - Recent Pertinent Medications Outpatient Anti-diabetic Regimen: * diet controlled * A1c = 5.7 % 01/17/19 The patient is currently receiving: * Basal insulin: Lantus -- units every -- hours * Correctional Insulin: Novolog Correction per scale ACHS Goal Range: Low 110 mg/dL - High 140 mg/dL Correction Factor: 25 mg/dL/unit * Prandial insulin: Per carb ratio of 1 unit per 8 grams CHO consumed Risk Factors for Insulin Resistance: * Steroids: dexamethasone 8 mg IV q8 hours * Recent Surgery: POD 4 for spinal surgery * Diet: T2DM - Assessment & Plan Assessment & Plan: ASSESSMENT: * Ms Loonye is a 74 y/o F with diet-controlled T2DM who presents with spinal surgery. She is POD 4 and is now on steroids, dexamethasone 8 mg IV q8 hours. I called Dr Aguiar yesterday to have accu-checks and Novolog added. Today patient's blood sugars were 171-220 ... indicating that the Novolog scale requires tightening. Will tighten to weight-based stress of 3. Overnight check added. * Fasting indicates that some basal insulin may be needed. Will do weight-based stress of 3 x 1 and monitor. PLAN FOR INPATIENT GLYCEMIC CONTROL: * Basal insulin * Lantus 25 units SQ x 1 * Bolus insulin * NovoLog per scale ACHS or Q6hrs while NPO * Goal Range: Low 110 mg/dL - High 140 mg/dL * Correction Factor: 15 mg/dL/unit * Nutritional / Prandial insulin per carb ratio of 1 unit per 6 grams CHO consumed * Please note that the plan above was derived based on current level of insulin resistance and hospital stress. These recommendations are appropriate for inpatient admission only. Plan of care upon discharge will need to be reassessed to avoid potential outpatient hypo/hyperglycemia. Thank you.
[2019-01-21] MEDS ORDERED: LANTUS PER UNIT CHARGE SQ ONE ×2 (16:00)
[2019-01-21] MEDS: DOCUSATE SODIUM/SENNA 50/8.6MG TAB PO SCH (21:04)
[2019-01-21] MEDS: TEMAZEPAM 15 MG CAPSULE PO PRN (21:05)
[2019-01-21] MEDS: FENOFIBRATE NANOCRYSTALLIZED 145 MG TABLET PO SCH (21:05)
[2019-01-21] MEDS: SIMVASTATIN 40 MG TAB PO SCH (21:05)
[2019-01-22] MEDS ORDERED: INSULIN ASPART 100 UNITS/ML 3 ML PEN SC SCH (02:00)
[2019-01-22] MEDS: KETOROLAC TROMETHAMINE 15 MG/ML VIAL IV SCH (05:35)
[2019-01-22] MEDS: DEXAMETHASONE SOD PHOSPHATE 6 MG in SYRINGE 0 ML IV SCH (05:35)
[2019-01-22] MEDS: LEVOTHYROXINE SODIUM 50 MCG TABLET PO SCH (05:35)
--- NOTE | 2019-01-22 08:03 | Orthopedic Progress Note ---
Date of Service January 22, 2019 Assessment & Plan (1) S/P spinal surgery: At this point she is doing quite well. We will discharge her home today. Restrictions have been reviewed in detail. She is comfortable with this plan. Supervising Physician Co-Signing Physician Notes Dr. Phoenix Leach Charlene Velasquez is postoperative day 5 lumbar decompression fusion with postoperative durotomy. This morning she is doing quite well. Denies headaches, nausea, vomiting. She is up and ambulatory with ease. Has some modest left hip pain but no radicular complaints. Back pain is controlled. She had a bowel movement. She is doing quite well in physical therapy. Review of Systems Review of Systems: All systems reviewed & are unremarkable except as noted in HPI & below Physical Exam Physical Exam: She is up and ambulatory around the room. She is sitting in bed during her examination. She is in no obvious distress. Alert and oriented x3. Lumbar dressing is clean dry and intact. Calves are soft nontender bilateral lower extremities. Neurovascular intact. Results & Data Vital Signs (Past 12 Hours) Vital Signs Temp Pulse Pulse Resp BP BP Pulse Ox 01/22/19 07:03 36.5 C 72 16 145/52 H 98 01/21/19 23:06 36.8 C 74 16 120/52 L 95
--- NOTE | 2019-01-22 08:10 | Discharge Summary ---
Date of Service January 22, 2019 Admission HPI Per Admitting Provider This is a 74-year-old female presents with chronic back and bilateral leg pain. After failing extensive course of nonoperative care she is here for surgical intervention. Admission Exam (Per Admitting) Constitutional WD/WN, vitals as above Eyes normal visual maier by confrontation Neck normal visual inspection Respiratory normal respiratory effort Cardiovascular RRR, no murmur, no edema Chest (Breasts) Chest: normal inspection of chest Gastrointestinal (Abdomen) Inspection/Auscultation: abdomen normal to inspection Musculoskeletal no cyanosis or clubbing, extremities motor strength 5/5 Skin no rashes, warm and dry Neurologic patellar DTR's 2+ bilat, sensation intact CN's II-XI intact bilaterally and moves all extremities Psychiatric A+Ox3, euthymic affect Discharge Data Consultations 01/17/19 15:11 Consult Case Management - Discharge Planning Routine Consult Hospitalist Routine Procedures Performed Operation Date: 01/17/19 09:05 Actual Procedures p L2-L3, L3-L4 Decompression L2-S1 Fusion with Interbody Cage L3-L4, Spinal Cord Monitoring - Phoenix Leach DO s L4-S1 Hardware Removal, Removal of Bone Growth Stimulator - Phoenix Leach DO Hospital Course (1) S/P spinal surgery: Patient is being discharged on postoperative day 5 status post lumbar decompression fusion. She had an intraoperative dural tear that was treated. She was made head of bed flat for the first 24 hours. When she was up and amatory started to have any headache. Drain was pulled. She was made bedrest again for the next 24 hours. Since then she has been up and amatory ambulatory. No headaches, fevers or chills nausea or vomiting. Denies radicular leg pain. Back pain is controlled. Discharge Instructions ACTIVITY RECOMMENDATIONS: SELF CARE INSTRUCTIONS AFTER THORACIC/LUMBAR FUSIONS 1. You may walk to your tolerance. It is good exercise for your legs and back. Expect some back and intermittent leg aches and pains. 2. You may perform "counter-top" level activities (make a sandwich, joann with a project, etc.). 3. No bending or lifting of more than 10 pounds or back twisting of any nature (roll like a log when turning in bed). 4. You may ride in a car for 20-30 minutes at a time. No driving until after your first visit with your doctor. 5. Frequent changes of position and restricting sitting to 30 minutes at a time will help limit the amount of back spasms and stiffness you may experience. 6. You may discontinue the use of ambulatory aids (cane, crutches, etc.) once your strength and confidence allow. 7. You may financial aid officer the shower and let water strike your incision when you arrive home at least once daily. Do not take a tub bath, sit in a hot tub or go into a swimming pool until after your first recheck in the office. SPECIAL CARE INSTRUCTIONS: VERY IMPORTANT TO READ AND REVIEW A. Your surgical incision has been closed with a cosmetic suture under the skin that will dissolve in about 6 weeks. In 14 days, you can use a pair of clean scissors and cut the suture that is left outside of the skin at the ends of your incision. 1. The small skin tapes can be removed 7 days after surgery if they have not fallen off by that point. 2. You may keep the wound open to air as much as possible to promote healing after post-op day number 5 unless told otherwise by your doctor. 3. If you think the wound looks like it is becoming infected (redness or worsening drainage) and/or you are experiencing fever, chill or worsening back pain and muscle spasms, contact the office so that we may evaluate you as soon as possible. B. Complications are uncommon, but please contact us if you have any signs or symptoms of: 1. wound infection (fever higher than 102.5 degrees F, redness, separation of wound, drainage, or increasing pain from the incision) 2. blood clots in legs (pain, swelling, redness and warmth in legs) 3. urinary tract infection (fever higher than 102.5 degrees F, burning upon urination or increased frequency of urination) 4. nerve problems (inability to walk on your toes or heels, numbness, loss of bowel or bladder control) 5. any other symptoms that concern you C. Please call the office at if you have any concerns or questions about your operation or recovery. D. No smoking! Smoking drastically decreases the chance of a solid fusion. E. Do not take any anti-inflammatory medications (Indocin, Advil, Motrin, Aspirin, Naprosyn, etc.) as these may inhibit the chance of a solid fusion. Tylenol is okay to take for pain. MANAGING PAIN AFTER SPINAL SURGERY 1. Narcotic medication is intended for short-term use and will be provided for surgical pain. Surgical pain usually lasts for a period of 4-6 weeks. Narcotic medication includes Percocet, Vicodin, Darvocet, Tylenol #3 or Lortab. 2. Longer-term pain is more appropriately treated with non-narcotic medication such as Tylenol ES. 3. Muscle spasm is not appropriately treated with narcotics. Muscle relaxers such as Soma, Flexeril or Skelaxin can be used along with Tylenol ES. 4. Remember that we all live with some "aches and pains". This is not unusual or uncommon after an injury or as we get older. a. Back pain is expected and may include muscle spasms for 4 to 6 weeks after surgery. The pain should gradually improve. If the pain worsens for no apparent reason, please contact the office. b. Intermittent leg pain may also be experienced and should not be concerned about unless it worsens for no apparent reason. If so, please contact the office. 5. We will provide appropriate medication within the normal guidelines of their prescribed use. We will also be very cautious and aware of potential abuse and extended duration of patients' medication needs. a. Pain medications are for your comfort and to assist with sleep and rest so that the tissue can heal. They are not provided in order to return to normal activity and should not be used through the day. To do so or worsening pain at night can result from ongoing tissue damage and development of tolerance to the prescribed medicine. 6. Please allow 2-3 days to process refills. Prescriptions will not be mailed but must be picked up at the office. FOLLOW UP VISIT: Keep your scheduled follow-up appointment. Any questions, please call the office at . Supervising Physician Co-Signing Physician Notes Dr. Phoenix Leach
[2019-01-22] MEDS: DULOXETINE HCL 60 MG CAP PO SCH (08:11)
[2019-01-22] MEDS: ASPIRIN 81 MG ECTAB PO SCH (08:12)
[2019-01-22] MEDS: CHECK FENTANYL PATCH PLACEMENT SCH (08:14)
[2019-01-22] MEDS: INSULIN ASPART 100 UNITS/ML 3 ML PEN SC SCH (08:26)
[2019-01-22] MEDS ORDERED: LANTUS PER UNIT CHARGE SQ ONE (09:00)
[2019-01-22] MEDS: OXYCODONE HCL IR 5 MG TAB (IMMEDIATE RELEASE) PO PRN (09:01)
== END 2019-01-22 11:48 | disposition home or self-care (01) | DRG 454 ==
LOC: ASU 07:18 → 3E 12:33
DX: G47.00 Insomnia, unspecified; F32.9 Major depressive disorder, single episode, unspecified; Z79.891 Long term (current) use of opiate analgesic; Z87.09 Personal history of other diseases of the respiratory system; E03.9 Hypothyroidism, unspecified; D89.89 Other specified disorders involving the immune mechanism, not elsewhere classified; Z79.1 Long term (current) use of non-steroidal anti-inflammatories (NSAID); M48.062 Spinal stenosis, lumbar region with neurogenic claudication; Z79.82 Long term (current) use of aspirin; Z98.1 Arthrodesis status; G97.41 Accidental puncture or laceration of dura during a procedure; M19.90 Unspecified osteoarthritis, unspecified site; Z79.899 Other long term (current) drug therapy; I10 Essential (primary) hypertension; E78.5 Hyperlipidemia, unspecified; Z96.7 Presence of other bone and tendon implants